=== PATIENT | female | born 1970 | race Caucasian/White ===

== ENCOUNTER 2016-12-21 14:45 | Emergency (ER) | payer OTHER, BC ==
[2016-12-21 14:52] VITALS: TEMP 98
--- NOTE | 2016-12-21 16:10 | UCPHY ---
H & P Patient Type: Established Chief Complaint Nursing Narrative: hit Rt elbow on cockpit door thursday - since then inc. 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 She states that she bumped it on the carpet door on Thursday. It did not hurt initially but over the last 2 days has become gradually more painful. She has pain with complete extension of her elbow. No pain with supination pronation. She does not have any significant swelling or deformity. Normal sensation pulses. REVIEW OF SYSTEMS: Constitutional: denies: chills, fever, recent illness, recent injury EENTM: denies: blurred vision, double vision, nose congestion Respiratory: denies: cough, shortness of breath Cardiac: denies: chest pain, irregular heart rate, lightheadedness, palpitations Gastrointestinal/Abdominal: denies: abdominal pain, diarrhea, nausea, vomiting, blood streaked stools Genitourinary: denies: dysuria, frequency, hematuria, pain Musculoskeletal: see HPI Skin: denies: lesions, rash, jaundice, bruising Neurological: denies: headache, numbness, paresthesia, tingling, dizziness, weakness Hematologic/Lymphatic: denies: blood clots, easy bleeding, easy bruising Immunologic/allergic: denies: HIV/AIDS, transplant EXAM: GENERAL: Well-appearing, well-nourished and in no acute distress. HEAD: Atraumatic, normocephalic. EYES: Pupils equal round and reactive to light, extraocular movements intact, sclera anicteric, conjunctiva are normal. ENT: TMs normal, nares patent, oropharynx clear without exudates. Moist mucous membranes. NECK: Normal range of motion, supple without lymphadenopathy or JVD. LUNGS: Breath sounds clear to auscultation bilaterally and equal. No wheezes rales or rhonchi. HEART: Regular rate and rhythm without murmurs, rubs or gallops. ABDOMEN: Soft, nontender, normoactive bowel sounds. No guarding, no rebound. No masses appreciated. BACK: No CVA tenderness, no spinal tenderness, step-offs or deformities EXTREMITIES: See HPI, tenderness to radial head greatest with extension NEUROLOGICAL: Cranial nerves II through XII grossly intact. Normal speech, normal gait. 5/5 strength, normal movement in all extremities, normal sensation PSYCH: Normal mood, normal affect. SKIN: Warm, dry, normal turgor, no visible rashes or lesions. Source: Patient Exam Limitations: No limitations - Personal History LMP (Females 10-55): 15-21 Days Ago Current Tetanus/Diphtheria Vaccine: Yes Tetanus Vaccine Date: 2007 - Medical/Surgical History Hx Asthma: No Hx Chronic Respiratory Disease: No Hx Diabetes: No Hx Cardiac Disease: No Hx Renal Disease: No Hx Cirrhosis: No Hx Alcoholism: No Hx HIV/AIDS: No Hx Splenectomy or Spleen Trauma: No Other PMH: 2 BACK SURGERIES AND 2 C SEC/L4-5 ARTIFICIAL DISC, tubal ligation - Family History Significant Family History: No pertinent family hx - Social History Smoking Status: Never smoked Alcohol Use: Sober Drug Use: None Constitutional: Initial Vital Signs Temperature (C) 36.6 C 12/21/16 14:50 Heart Rate 83 12/21/16 14:50 Respiratory Rate 18 12/21/16 14:50 Blood Pressure 139/93 H 12/21/16 14:50 O2 Sat (%) 97 12/21/16 14:50 O2 Delivery Mode Room Air Allergies/Adverse Reactions: No Known Allergies Allergy (Verified 08/13/14 08:07) Home Medications: Medication Instructions Recorded ZOLPIDEM TARTRATE [Ambien CR 12.5 12.5 mg PO HS 07/16/ mg] Amoxicillin Trihydrate 500 mg PO TID #21 cap 08/13/14 [Amoxicillin 500mg cap] Medical Decision Making - Diagnostics Imaging Results: Imaging Impressions Elbow X-Ray 12/21/16 14:53 Impression: Normal right elbow series. Imaging: Discussed imaging studies w/ drafter Radiologist ED Course/Re-evaluation: We discussed the patient's x-rays which are reassuring. The mechanism of her injury is also reassuring and the time frame of his gradual onset of pain. The location is concerning for radial head fracture but no effusions seen on x-ray. She is asking about return to work. Encouraged anti-inflammatories rest and ice. 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 She understands that I cannot completely rule out a radial head fracture. She will follow up with her worker' s Comp or her primary physician if she is still hurting and needs to not fly Thursday. Differential Diagnosis: Partial list of the Differential diagnosis considered include but were not limited to; radial head fracture, contusion, traumatic bursitis and although unlikely based on the history and physical exam, I also considered tendinitis, dislocation, infection, nerve injury. I discussed these differential diagnoses and the plan with the patient as well as the usual and expected course. The patient understands that the diagnosis is provisional and that in medicine we are not always correct and that further workup is often warranted. Usual and customary warnings were given. All of the patient's questions were answered. The patient was instructed to return to the emergency department should the symptoms at all worsen or return, otherwise to followup with the physician as we discussed. Departure - Departure Disposition: Home, Routine, Self-Care Clinical Impression: Elbow pain, right Condition: Fair Instructions: Elbow Bursitis (ED) Referrals: ANNIE BOLANOS [Primary Care Provider] - As per Instructions Stand Alone Forms: Work Comp Follow Up - PQRS PQRS Measurement: Not applicable
[2016-12-21 16:16] VITALS: BP 140/92; PULSE 78; RESP 16; O2SAT 94
== END 2016-12-21 16:17 | disposition home or self-care (01) ==
LOC: CED 14:45
DX: S59.901A Unspecified injury of right elbow, initial encounter (principal); W22.09XA Striking against other stationary object, initial encounter; Y93.89 Activity, other specified; Y92.520 Airport as the place of occurrence of the external cause; Y99.0 Civilian activity done for income or pay
CPT/HCPCS: 73080-PO; 99214-PO; G0463-PO

== ENCOUNTER 2016-12-26 20:11 | Emergency (ER) | payer OTHER, BC ==
[2016-12-26] MEDS ORDERED: HYDROCOD/APAP 5/325 PREPACK#6 BTL TAKEHOME ONE (20:22)
--- NOTE | 2016-12-26 20:24 | EDPHY ---
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 I saw her 5 days ago after she hit her elbow on a cockpit door. She had normal x-rays at that time. We discussed rest and anti-inflammatories. She has not yet been able to return to work because she has continued pain. She has tenderness when palpated over the radial nerve. She has normal range of motion and sensation. 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 REVIEW OF SYSTEMS: Constitutional: denies: chills, fever, recent illness, recent injury EENTM: denies: blurred vision, double vision, nose congestion Respiratory: denies: cough, shortness of breath Cardiac: denies: chest pain, irregular heart rate, lightheadedness, palpitations Gastrointestinal/Abdominal: denies: abdominal pain, diarrhea, nausea, vomiting, blood streaked stools Genitourinary: denies: dysuria, frequency, hematuria, pain Musculoskeletal: See HPI Skin: denies: lesions, rash, jaundice, bruising Neurological: denies: headache, numbness, paresthesia, tingling, dizziness, weakness Hematologic/Lymphatic: denies: blood clots, easy bleeding, easy bruising Immunologic/allergic: denies: HIV/AIDS, transplant EXAM: GENERAL: Well-appearing, well-nourished and in no acute distress. HEAD: Atraumatic, normocephalic. EYES: Pupils equal round and reactive to light, extraocular movements intact, sclera anicteric, conjunctiva are normal. ENT: TMs normal, nares patent, oropharynx clear without exudates. Moist mucous membranes. NECK: Normal range of motion, supple without lymphadenopathy or JVD. LUNGS: Breath sounds clear to auscultation bilaterally and equal. No wheezes rales or rhonchi. HEART: Regular rate and rhythm without murmurs, rubs or gallops. ABDOMEN: Soft, nontender, normoactive bowel sounds. No guarding, no rebound. No masses appreciated. BACK: No CVA tenderness, no spinal tenderness, step-offs or deformities EXTREMITIES: Pain to radial head primarily over radial nerve. No radiation of pain. Normal function and strength of elbow, wrist and hand. Normal sensation. No visible swelling. No erythema NEUROLOGICAL: Cranial nerves II through XII grossly intact. Normal speech, normal gait. 5/5 strength, normal movement in all extremities, normal sensation PSYCH: Normal mood, normal affect. SKIN: Warm, dry, normal turgor, no visible rashes or lesions. Source: Patient Exam Limitations: No limitations - Personal History Tetanus Vaccine Date: 2007 - Medical/Surgical History Hx Asthma: No Hx Chronic Respiratory Disease: No Hx Diabetes: No Hx Cardiac Disease: No Hx Renal Disease: No Hx Cirrhosis: No Hx Alcoholism: No Hx HIV/AIDS: No Hx Splenectomy or Spleen Trauma: No Other PMH: 2 BACK SURGERIES AND 2 C SEC/L4-5 ARTIFICIAL DISC, tubal ligation - Family History Significant Family History: No pertinent family hx - Social History Smoking Status: Never smoked Alcohol Use: None Drug Use: None Constitutional: Initial Vital Signs Temperature (C) 37.2 C 12/26/16 20:22 Heart Rate 70 12/26/16 20:22 Respiratory Rate 16 12/26/16 20:22 Blood Pressure 134/95 H 12/26/16 20:22 O2 Sat (%) 97 12/26/16 20:22 O2 Delivery Mode Room Air Allergies/Adverse Reactions: No Known Allergies Allergy (Verified 12/26/16 20:25) Home Medications: Medication Instructions Recorded Hydrocodone/APAP 5/325 [Elwood 1 - 2 tab PO Q4H PRN #10 tab 12/26/16 5/325 (RX)] Medical Decision Making - Diagnostics Imaging Results: Imaging Impressions Elbow X-Ray 12/26/16 20:21 Impression: Nothing acute radiographically. X-ray: Right elbow x-ray was obtained. I viewed the images myself on the PACS system. My interpretation of the images is: negative for acute disease . The radiologist interpretation is pending. ED Course/Re-evaluation: We discussed the x-ray results. The patient is reassured. She appears to have point tenderness over her radial nerve but no radiation of the pain or paresthesias. She does not have pain with movement of the elbow joint as would expect with a traumatic bursitis or joint effusion. I suspect either an occult fracture or radial nerve trauma. I will have her follow up with Hand surgery. She will require a note to miss work on Thursday. Differential Diagnosis: Partial list of the Differential diagnosis considered include but were not limited to; neuropathy, radial head fracture, bursitis and although unlikely based on the history and physical exam, I also considered infection, gout. I discussed these differential diagnoses and the plan with the patient as well as the usual and expected course. The patient understands that the diagnosis is provisional and that in medicine we are not always correct and that further workup is often warranted. Usual and customary warnings were given. All of the patient's questions were answered. The patient was instructed to return to the emergency department should the symptoms at all worsen or return, otherwise to followup with the physician as we discussed. - Data Points Medications Given: Discontinued Medications Hydrocodone Bitart/Acetaminophen (Elwood 5/325mg Prepack#6) 1 btl TAKEHOME EDNOW ONE Stop: 12/26/16 20:23 Last Admin: 12/26/16 20:28 Dose: 1 btl Departure - Departure Disposition: Home, Routine, Self-Care Clinical Impression: Elbow pain, right Condition: Fair Instructions: Elbow Sprain (ED) Referrals: ANNIE BOLANOS [Primary Care Provider] - As per Instructions Rex Starr MD [Medical Doctor] - As per Instructions Stand Alone Forms: Work Excuse Prescriptions: Hydrocodone/APAP 5/325 [Elwood 5/325 (RX)] 1 - 2 tab PO Q4H PRN #10 tab PRN Reason: Pain, Moderate
[2016-12-26 20:25] VITALS: RESP 16; TEMP 99
[2016-12-26 20:47] VITALS: BP 126/80; PULSE 75; O2SAT 96
== END 2016-12-26 20:55 | disposition home or self-care (01) ==
LOC: CED 20:11
DX: S59.901A Unspecified injury of right elbow, initial encounter (principal); W22.8XXA Striking against or struck by other objects, initial encounter; Y92.69 Other specified industrial and construction area as the place of occurrence of the external cause; Y99.0 Civilian activity done for income or pay; Y93.89 Activity, other specified
CPT/HCPCS: 73080-PO

== ENCOUNTER 2016-12-31 12:21 | Emergency (ER) | payer OTHER, BC | END 2016-12-31 12:30 | disposition left against medical advice (07) | LOC: CED 12:21 | DX: Z53.21 Procedure and treatment not carried out due to patient leaving prior to being seen by health care provider (principal) ==